=== PATIENT | male | born 1990 | race Caucasian/White ===

== ENCOUNTER 2024-04-07 00:07 | Emergency (ER) | payer SELFPAY ==
[2024-04-07 00:05] VITALS: BP 126/75; PULSE 88; RESP 15; TEMP 36.6; O2SAT 96
[2024-04-07 00:15] VITALS: BP 108/75; PULSE 72; RESP 13; O2SAT 96
[2024-04-07 00:31] VITALS: BP 115/71; PULSE 72; RESP 14; O2SAT 99
[2024-04-07 00:32] VITALS: BP 119/68; PULSE 79; RESP 16; O2SAT 98
--- NOTE | 2024-04-07 00:55 | ED.GENADULT ---
HPI - General Adult General Chief complaint: Seizure Stated complaint: SYNCOPE; POSSIBLE SEIZURE Time Seen by Provider: 04/07/24 00:20 History of Present Illness HPI narrative: Patient 33-year-old gentleman who presents emergency department with chief complaint of syncopal episode. Patient reports that he was with his friends and smokes some marijuana the patient reports that he felt lightheaded closed his eyes and then woke up with his friends around him. The patient reports that the friends noticed that for about 5 seconds he had an episode of jerking and then was back to his normal status. The patient reports that he has no complaints currently does feel a little bit tired after using marijuana. The patient states he really does not want to be seen in the emergency department and if he felt the weighted right now he would not have been transported by EMS. Review of Systems Review of Systems: A 10 system review of systems was completed on the patient and is negative except for what is stated in the HPI. Nursing and ancillary documentation was reviewed. Exam Narrative: GENERAL: Well-appearing, well-nourished, and in no acute distress. HEAD: Normocephalic, atraumatic. EYES: PERRLA and EOMI. ENT: Nares clear, no rhinorrhea or epistaxis. Mucous membranes moist. NECK: Supple. CHEST: Clear to auscultation. No respiratory distress. HEART: Regular rate and rhythm. No murmur heard. Normal peripheral pulses. ABDOMEN: Soft, nontender, nondistended, normal active bowel sounds. EXTREMITIES: Normal range of motion. No edema. SKIN: Warm, dry, no rash. NEURO: No focal deficits. Alert and oriented x3. PSYCH: Normal mood and affect. Course Vital Signs Vital signs: Vital Signs Temperature 36.6 C 04/07/24 00:05 Pulse Rate 88 04/07/24 00:05 Respiratory Rate 15 04/07/24 00:05 Blood Pressure 126/75 04/07/24 00:05 Pulse Oximetry 96 04/07/24 00:05 Oxygen Delivery Room Air 04/07/24 00:05 Temperature 36.6 C 04/07/24 00:05 Pulse Rate 79 04/07/24 00:32 Respiratory Rate 16 04/07/24 00:32 Blood Pressure 119/68 04/07/24 00:32 Pulse Oximetry 98 04/07/24 00:32 Oxygen Delivery Room Air 04/07/24 00:11 Medical Decision Making [facility] Narrative Medical decision making narrative: Differential diagnosis includes syncopal episode, sepsis due syncope, vasovagal syncope, seizure, electrolyte abnormality, dysrhythmia In discussion with the patient he does not want to be evaluated in the emergency department reports that he feels fine now it was explained to the patient that we may miss a underlying cause for the syncopal episode patient expressed understanding this and reports that he would return to the emergency department if he had worsening symptoms. The patient did sign against medical advice Vital Signs Vital Signs: Vital Signs Temperature 36.6 C 04/07/24 00:05 Pulse Rate 88 04/07/24 00:05 Respiratory Rate 15 04/07/24 00:05 Blood Pressure 126/75 04/07/24 00:05 Pulse Oximetry 96 04/07/24 00:05 Oxygen Delivery Room Air 04/07/24 00:05 Temperature 36.6 C 04/07/24 00:05 Pulse Rate 79 04/07/24 00:32 Respiratory Rate 16 04/07/24 00:32 Blood Pressure 119/68 04/07/24 00:32 Pulse Oximetry 98 04/07/24 00:32 Oxygen Delivery Room Air 04/07/24 00:11 Discharge Plan Discharge Clinical Impression: Syncope Patient Disposition: Left Against Medical Advice Condition: Stable Instructions: Syncope (ED) Time of Disposition: 00:59
== END 2024-04-07 00:48 | disposition left against medical advice (07) ==
LOC: ANHED 00:54
PROVIDERS: Emergency Provider Emergency Medicine
DX: R55 Syncope and collapse (principal)
CPT/HCPCS: 99281